=== PATIENT | female | born 1980 | race Two or more races ===

== ENCOUNTER 2024-01-23 16:13 | Emergency (ER) | payer SELFPAY ==
[2024-01-23 16:17] VITALS: BMI 24.4
[2024-01-23 16:24] VITALS: BP 101/58; PULSE 60; RESP 16; TEMP 37; O2SAT 97
--- NOTE | 2024-01-23 16:41 | XR_ITS ---
Examination: Breast ultrasound, unilateral, right Date and time of exam: January 23, 2024 1607 hrs. Indications: Inner right breast pain with palpable lump noticed beginning 2 weeks ago Technique: Real-time rodriguez scale ultrasonographic imaging performed right breast including all 4 quadrants as well as nipple retroareolar and axillary region. Findings: 3:00 oval mass, irregular margins, vascular, 4.3 x 1.0 x 1.8 cm 9:00 cyst 4 x 3 x 4 mm Impression: BI-RADS 4: Suspicious mass, suspicious for malignancy 3:00 oval mass irregular margins 4.3 x 1.0 x 1.8 cm, biopsy is needed to exclude breast carcinoma This mass is amenable to ultrasound-guided breast biopsy Recommend diagnostic mammography follow-up
--- NOTE | 2024-01-23 16:44 | PD.EDRME ---
Rapid Medical Screening Exam RME Arrival date/time: 01/23/24 16:13 43-year-old female presents emergency department complains of 2-week history of right breast pain Chief Complaint: Skin/Abscess/Foreign Body Time Seen by Provider: 01/23/24 16:22 Vital signs: Vital Signs Temperature 98.6 F 01/23/24 16:24 Pulse Rate 60 01/23/24 16:24 Respiratory Rate 16 01/23/24 16:24 Blood Pressure 101/58 L 01/23/24 16:24 Pulse Oximetry (%) 97 01/23/24 16:24 Oxygen Delivery Method Room Air 01/23/24 16:24
[2024-01-23 17:58] LABS: Basophils % (Auto) 1 % (0-2.5); Eosinophils % (Auto) 1 % (0-10); Hematocrit 37.6 % (36.0-46.0); Hemoglobin 12.7 g/dL (12.0-16.0); Immature Granulocytes % (Auto) 0 % (0-0); Immature Granulocytes Auto 0.02 Thou/mm3 (0.00-0.00); Lymphocytes # (Auto) 2.4 Thou/mm3 (1.0-4.8); Lymphocytes % (Auto) 29 % (10-50); Mean Corpuscular HGB Conc 33.8 g/dl (31.0-37.0); Mean Corpuscular Hemoglobin 31.6 pg (25.0-35.0); Mean Corpuscular Volume 94 fL (80-100); Monocytes # (Auto) 0.7 Thou/mm3 (0.0-0.8); Monocytes % (Auto) 8 % (0-12); Neutrophils # (Auto) 5.1 Thou/mm3 (1.8-7.7); Neutrophils % (Auto) 62 % (37-80); Nucleated Red Blood Cell % 0 /100 WBC (0); Platelet Count 232 Thou/mm3 (140-440); RDW Standard Deviation 42.2 fL (36.4-46.3); Red Blood Count 4.02 Miln/mm3 (4.00-5.20); White Blood Count 8.2 Thou/mm3 (3.6-11.0)
[2024-01-23 18:32] LABS: HCG,Qualitative Serum Negative
[2024-01-23 18:33] LABS: Alanine Aminotransferase 11 U/L (10-49); Albumin, Serum 4.4 gm/dL (3.5-5.0); Albumin/Globulin Ratio 1.5 (1.2-2.2); Alkaline Phosphatase 53 U/L (46-116); Anion Gap 5 (7-16); Aspartate Amino Transferase 13 U/L (0-34); BUN/Creatinine Ratio 23 Ratio (12-20); Bilirubin,Total 0.6 mg/dL (0.3-1.2); Blood Urea Nitrogen 14 mg/dL (9-23); C-Reactive Protein < 0.4 mg/dL (0.0-0.9); Calcium 9.1 mg/dL (8.3-10.6); Calcium (Corrected) 9.1 mg/dL (8.5-10.1); Carbon Dioxide 27.8 mMol/L (20.0-31.0); Chloride 108 mMol/L (98-107); Creatinine (Component) 0.6 mg/dL (0.6-1.3); Estimated Creatinine Clearance 97.4 mL/min (>60); Globulin 2.9 gm/dL (2.3-3.5); Glucose 93 mg/dL (74-106); Osmolality,Calculated 281 (275-295); Potassium 3.4 mMol/L (3.4-5.1); Sodium 141 mMol/L (136-145); Total Protein 7.3 gm/dL (5.7-8.2); eGFR > 60 See Note
[2024-01-23 18:45] VITALS: BP 102/66; PULSE 61; RESP 18; TEMP 37; O2SAT 98
--- NOTE | 2024-01-23 20:57 | EDNOTE_ITS ---
ED General RME/HPI General Chief complaint: Skin/Abscess/Foreign Body Stated complaint: RT BREAST PAIN FOR 2 WKS Time Seen by Provider: 01/23/24 16:22 Arrival date/time: 01/23/24 16:13 CC: Right breast mass with tenderness HPI patient noticed approximately 2 weeks ago with slow progressive increase in tenderness, the patient denies any OTC medication for pain. Patient has not had a breast exam in years . Patient has no PCP. Patient denies fever chills shortness of breath difficulty breathing left breast pain nausea or vomiting. Localized pain is 3-4 out of 10 scale. RME / HPI RME / HPI narrative: 01/23/24 16:13 43-year-old female presents emergency department complains of 2-week history of right breast pain Related Data Previous Rx's ?Medication ?Instructions ?Recorded meloxicam 7.5 mg tablet 7.5 mg PO QDAY #10 tabs 01/23/24 Allergies Allergy/AdvReac Type Severity Reaction Status Date / Time No Known Allergies Allergy Verified 01/23/24 16:20 Past Medical History Social History SMOKING STATUS: Never smoker ED Exam Narrative Physical exam: [General: Not in any acute distress Head normocephalic HEENT: Within acceptable limits Neck is supple nontender Chest equal chest rise nontender to palpation. Breast: Under supervision breasts were examined, the right breast the patient has a palpable poorly defined nonmobile mass in the medial aspect of the right breast just lateral to the areola, no surrounding erythema edema. The nipple is not inverted, there is no dimpling in the breast. Left breast is unremarkable with no masses appreciated no dimpling. Left and right breast are similar in size shape and contour. Respiratory: Clear to auscultation no wheezes crackles or rubs CV: Rate rhythm is regular no murmurs rubs or clicks Abdomen is distended secondary to body habitus soft nontender no masses positive bowel sounds all 4 quadrants Back: No CVA tenderness no spinous process tenderness from cervical spine thoracic and lumbar spine Skin: Intact no petechiae rash induration ulceration or crepitus Extremities: Moving all extremity against resistance cap refill less than 2 seconds neurosensory intact Neuro: Awake alert oriented x3 Glascow coma 15 no focal deficits] Course Quality Measures none Orders Category Date Time Status US breast RT complete Stat Exams 01/23/24 16:41 Completed CBC Stat Lab 01/23/24 17:26 Completed CMP [Comprehensive Metabolic Panel] Stat Lab 01/23/24 17:26 Completed CRP [C-Reactive Protein] Stat Lab 01/23/24 17:26 Completed HCG,Qualitative Serum Stat Lab 01/23/24 17:26 Completed Vital Signs Vital signs: Vital Signs Temperature 98.6 F 01/23/24 16:24 Pulse Rate 60 01/23/24 16:24 Respiratory Rate 16 01/23/24 16:24 Blood Pressure 101/58 L 01/23/24 16:24 Pulse Oximetry (%) 97 01/23/24 16:24 Oxygen Delivery Method Room Air 01/23/24 16:24 MDM Patient data External records reviewed:: [facility] previous records Clinical information provided by:: patient Social determinants that could affect healthcare access:: none Patient has the following chronic illnesses:: None How is presenting disease/condition affected by chronic disease/condition?: u neffected by Evaluation data The following diagnostics were reviewed and interpreted by me:: lab results Lab and/or radiology exams considered but not ordered:: CBC shows no acute leukocytosis anemia thrombocytopenia CMP shows no acute electrolyte imbalances renal impairment transaminitis or T. bili elevation Ultrasound of the right breast shows the patient has a 3 cm oval mass irregular margins as interpreted by me read by radiology. Interpretation Summary: Breast mass that needs prompt outpatient needle biopsy for evaluation. Medications Medications considered but not ordered:: None Medication administrations:: None Consultations Consultation(s) initiated? (list below): No Diagnosis Differential Diagnosis ED Complaint MDM: Breast mass breast abscess breast cellulitis Most likely diagnosis given after review of the tests above:: Breast mass Admission Indicated Admission indicated?: not indicated Explain why admission is indicated or not indicated:: Stable for outpatient follow-up Admission Request Was there a request for admission?: No Disposition Plan Disposition Plan: Discharge Discharge Attestation Discharge Attestation: The patient and all family members were given an opportunity to ask questions and understood the discharge instructions. Discharge instructions specifically effects, indications for sooner follow up or return to the emergency department, and the expected course of current diagnosis. Patient condition: Stable Medical Decision Making Differential Diagnosis Differential Diagnosis: Breast mass breast abscess breast cellulitis Lab Data 01/23/24 17:26 01/23/24 17:26 Labs: Lab Results 01/23/24 Range/Units 17:26 WBC 8.2 (3.6-11.0) Thou/mm3 RBC 4.02 (4.00-5.20) Miln/mm3 Hgb 12.7 (12.0-16.0) g/dL Hct 37.6 (36.0-46.0) % MCV 94 (80-100) fL MCH 31.6 (25.0-35.0) pg MCHC 33.8 (31.0-37.0) g/dl RDW Std Deviation 42.2 (36.4-46.3) fL Plt Count 232 (140-440) Thou/mm3 Neut % (Auto) 62 (37-80) % Lymph % (Auto) 29 (10-50) % Barry % (Auto) 8 (0-12) % Eos % (Auto) 1 (0-10) % Baso % (Auto) 1 (0-2.5) % Neut # (Auto) 5.1 (1.8-7.7) Thou/mm3 Lymph # (Auto) 2.4 (1.0-4.8) Thou/mm3 Barry # (Auto) 0.7 (0.0-0.8) Thou/mm3 Eos # (Auto) 0.0 (0.0-0.5) Thou/mm3 Baso # (Auto) 0.0 (0.0-0.2) Thou/mm3 Immature Gran # (Auto) 0.02 H (0.00-0.00) Thou/mm3 Absolute Nucleated RBC 0.00 (0.00-0.00) Thou/mm3 Immature Gran % 0 (0-0) % Nucleated RBC % 0 (0) /100 WBC Sodium 141 (136-145) mMol/L Potassium 3.4 (3.4-5.1) mMol/L Chloride 108 H (98-107) mMol/L Carbon Dioxide 27.8 (20.0-31.0) mMol/L Anion Gap 5 L (7-16) BUN 14 (9-23) mg/dL Creatinine 0.6 (0.6-1.3) mg/dL Estim Creat Clear Calc 97.4 (>60) mL/min eGFR > 60 (60 - ) See Note BUN/Creatinine Ratio 23 H (12-20) Ratio Glucose 93 (74-106) mg/dL Calculated Osmolality 281 (275-295) Calcium 9.1 (8.3-10.6) mg/dL Corrected Calcium 9.1 (8.5-10.1) mg/dL Total Bilirubin 0.6 (0.3-1.2) mg/dL AST 13 (0-34) U/L ALT 11 (10-49) U/L Alkaline Phosphatase 53 (46-116) U/L C-Reactive Prot, Quant < 0.4 (0.0-0.9) mg/dL Total Protein 7.3 (5.7-8.2) gm/dL Albumin 4.4 (3.5-5.0) gm/dL Globulin 2.9 (2.3-3.5) gm/dL Albumin/Globulin Ratio 1.5 (1.2-2.2) HCG, Qual Negative Discharge Plan Plan Patient Disposition: HOME (Self Care) Patient condition on transfer: Stable Prescriptions/Referrals Prescriptions/Med Rec: New meloxicam 7.5 mg tablet 7.5 mg PO QDAY Qty: 10 0RF Referrals: Elio Peoples MD [Physician] - In 1 week No Primary/Family,Physician [Primary Care Provider] - In 1 week Problem List Clinical Impression: Breast mass, right Patient/Caregiver Discharge Instructions Education Materials: ED Breast Lump, Uncertain Cause Additional Instructions: Follow-up with the [facility] [address], schedule self for an outpatient breast biopsy. If there is a worsening of symptoms including increased breast pain fever redness or lesion in the breast return the emergency room for reevaluation. Print Language: Vietnamese Stand Alone Forms: Stormy Award Info., Work/School Release, Patient Portal Info Letter Attestation Attestation The patient was seen by the midlevel practitioner. I, the co-signing physician, was present during the entire ER visit. While I did not physically examine the patient, I was available for consultation as needed.
== END 2024-01-23 21:10 | disposition home or self-care (01) ==
PROVIDERS: Nurse Practitioner Primary Care; Emergency Provider Emergency Medicine
DX: N63.15 Unspecified lump in the right breast, overlapping quadrants (principal)
CPT/HCPCS: 36415; 76641; 80053; 84703; 85025; 86140; 99284